=== PATIENT | female | born 1985 | race Asian ===

== ENCOUNTER 2023-07-26 04:35 | Inpatient (IN) | payer OTHER, SELFPAY ==
[2023-07-25 21:33] VITALS: BP 105/68
[2023-07-25 21:39] VITALS: BP 131/87
[2023-07-25 22:21] LABS: % Basophils 0.3 % (0-2); % Immature Granulocytes 0.4 % (0-0.5); % Lymphocytes 11.3 % (20.5-51.1); % Monocytes 9.5 % (1.7-9.3); % Neutrophils 78.5 % (42.2-75.2); Absolute Immature Granulocytes 0.1 10^3/uL (0-0.05); Absolute Lymphocytes 1.3 10^3/uL (1.2-3.4); Absolute Monocytes 1.1 10^3/uL (0.1-0.6); Hematocrit 38.8 % (37.0-47.0); Hemoglobin 13.8 g/dL (12.0-16.0); Mean Corp Hgb Conc. 35.6 g/dL (33.0-37.0); Mean Corpuscular Hgb 29.9 pg (27.0-31.0); Mean Corpuscular Volume 84.2 fL (81.0-99.0); Mean Platelet Volume 10.2 fL (7.4-10.4); Nucleated Red Blood Cells % 0 %; Platelet Count 198 10^3/uL (130-400); Red Blood Cell Count 4.61 10^6/uL (4.20-5.40); White Blood Cell Count 11.4 10^3/uL (4.8-10.8)
[2023-07-25 22:22] LABS: ALT (SGPT) 18 U/L (0-35); AST (SGOT) 25 U/L (14-36); Albumin 4.5 g/dl (3.5-5.0); Alkaline Phosphatase 50 U/L (38-126); Blood Urea Nitrogen 11 mg/dl (7-17); Carbon Dioxide 24 mmol/L (22-30); Chloride 101 mmol/L (98-107); Glucose 109 mg/dl (70-99); Potassium 4.1 mmol/L (3.5-5.1); Sodium 135 mmol/L (135-145); Total Bilirubin 0.6 mg/dl (0.2-1.3); Total Protein 7.6 g/dl (6.3-8.2); eGFR > 60.00
[2023-07-26] VITALS (15 sets, daily range): BP systolic 85–123; BP diastolic 58–80
--- NOTE | 2023-07-26 01:15 | ED.GENMED ---
History of Present Illness
General
Chief Complaint: Fever
Source: patient
Exam Limitations: none
Time Seen by Provider: 07/26/23 00:57
Travel History
Have you had any contact with someone who has COVID-19?: No
Do you have any symptoms of coronavirus? Fever > 100 degrees, chills, cough, shortness of breath, sore throat, loss of taste or smell, muscle aches, or headache?: No
History of Present Illness
History of Present Illness:
This is a 37 year old female that comes in with her daughter who interprets for her. States that she has left mid back pain for the past week and then 2 days ago she started with a fever. States that her fever at home was 101. States that she has
had chills, chest pain, SOB, cough, and a headache. Denies any abd pain, nausea, vomiting, diarrhea, dizziness, urinary burning.
Past History
Past History
ED Past Medical History: None; Negative Asthma, HTN, Hypercholesterolemia or NIDDM
ED Past Surgical History: None
Social History
Tobacco: Non-smoker
Alcohol: None
Drug: None
Personal:
Living: with family
Review of Systems
Review of Systems
All Other Systems: ROS reviewed and negative except as documented in HPI and ROS
Constitutional: Reports fever and chills
EENT: Reports no symptoms
Respiratory: Reports cough and trouble breathing
Cardiac: Reports chest pain
ABD/GI: Reports no symptoms; Denies abdominal pain, nausea, vomiting or diarrhea
: Reports no symptoms; Denies dysuria, frequency or urgency
Musculoskeletal: Reports no symptoms
Skin: Reports no symptoms
Neurological: Reports headache; Denies dizzy
Psychiatric: Reports no symptoms
Phy Exam
General Physical Exam
General Presentation: no apparent distress
General age: appears stated age
General Skin: warm and dry
General Habitus: normal
General Mental: alert
General Hydration: appears well hydrated
ENT Exam
ENT Exam: TM's normal, pharynx normal and neck supple
Eye Exam
Eye Exam: EOMI
Cardiovascular Exam
Cardiovascular Exam: regular rate/rhythm, no edema, no murmur and normal peripheral pulses
Pulmonary Exam
Pulmonary Exam: lungs clear, no respiratory distress, no rales, chest non tender, no crackles, no rhonchi, no wheezing and other (Dry cough noted)
Gastrointestinal Exam
Gastrointestinal Exam: normal bowel sounds, soft, no organomegaly, no pulsatile mass, non distended and tender (Very slight left UQ tenderness with palpation)
Musculoskeletal Exam
Musculoskeletal Exam: full ROM and no edema
Skin Exam
Skin Exam: normal color, warm/dry, no rash and no petechia
Psychiatric Exam
Psychiatric Exam: normal mood/affect
Course
Orders/Labs/Results
Orders:
Orders
07/25/23 21:42
EKG [Electrocardiogram (*1)] Urgent
Reason for Study: Chest Pain
EKG- Treatment ONCE
07/25/23 21:59
CBC/With Diff [Complete Blood Count/With Diff] Urgent
CMP [Comprehensive Metabolic Panel] Urgent
HCG, Serum Qualitative Screen Urgent
07/26/23 01:12
CR Chest - 2 Views Urgent
Comment:
Reason For Exam: SOB, chest pain, Cough
07/26/23 01:13
0.9% Sodium Chloride 1000 ml [Nss] 1,000 ml IV BOLUS
07/26/23 01:33
COVID-19 Antigen Urgent
Source: Nasal Swab
Lactic Acid Urgent
Troponin I Urgent
Urinalysis Reflex To Culture Urgent
Date Specimen was Collected: 07/26/23
Time Specimen was Collected: 01:00
Urine Microscopic Reflex Cult Urgent
Blood Culture Q30M
EMERY Source: Blood/Venous
Specimen Description:
Blood Culture Q30M
EMERY Source: Blood/Venous
Specimen Description:
Influenza A+B Rapid Molecular Urgent
EMERY Source: Nasal Swab
Specimen Description:
07/26/23 01:37
Acetaminophen [Tylenol] 1,000 mg .ROUTE .STK-MED ONE
07/26/23 01:38
Acetaminophen [Tylenol] 1,000 mg PO NOW STA
07/26/23 01:47
CT Abd/pel Without Iv Or Oral Urgent
Comment:
Reason For Exam: Left flank/back pain
07/26/23 02:29
Add On- LAB Urgent
Tests Added?: HCG Qual
07/26/23 02:30
Add On- LAB Urgent
Tests Added?: HCG
Abnormal Lab Results
07/25/23 07/26/23
21:59 01:33
WBC 11.4 H 10^3/uL
(4.8-10.8)
Abs Immat Gran (auto) 0.1 H 10^3/uL
(0-0.05)
Absolute Neuts (auto) 9.0 H 10^3/uL
(1.4-6.5)
Absolute Monos (auto) 1.1 H 10^3/uL
(0.1-0.6)
Neutrophils % 78.5 H %
(42.2-75.2)
Lymphocytes % 11.3 L %
(20.5-51.1)
Monocytes % 9.5 H %
(1.7-9.3)
Glucose 109 H mg/dl
(70-99)
Urine Ketones 3+ A
(Negative)
Ur Occult Blood Reflex 3+ A
(Negative)
Leukocyte Esterase Rfl Trace A
(Negative)
Urine RBC 26-30 A /HPF
(0-2)
Urine Bacteria (Reflex) Few A
(Negative)
07/25/23 21:59
07/25/23 21:59
Leukocytosis, Glucose nonfasting. Urine negative for infection. COVID and Influenza negative. Troponin <0.012
Vital Signs
Initial and Last Documented VS:
Initial Vital Signs
Pulse Resp BP Pulse Ox
79 32 105/68 96
07/25/23 21:33 07/25/23 21:33 07/25/23 21:33 07/25/23 21:33
Last Documented Vital Signs
Temp Pulse Resp BP Pulse Ox
100.3 F 90 21 97/62 96
07/26/23 03:00 07/26/23 03:06 07/26/23 03:06 07/26/23 03:06 07/26/23 03:06
MDM/Problems Addressed
Differential Diagnosis Includes:
COVID, PNA,
MDM/Problems Addressed:
This is a 37 year old female that comes in with multiple complaints. Daughter states that she started a weeks ago with left sided back pain and then 2 days ago she started with a fever. Patient has multiple complaints when questioned.
Will check labs. Chest x-ray, Urine.
Back into see patient. Explained that she has a right lower lobe Pneumonia. Will start patient on IV antibiotics and admit. Hospitalist notified.
Chronic conditions affecting care:
NA
Acute Exacerbation and/or Progression of Chronic Illness:
NA
*Radiology
Radiology exam reviewed: preliminary read by ED provider ( Chest- Right lower lobe Pneumonia )
*Pulse Oximetry
Patient hypoxic: no
*EKG
Interpreted by ED Provider?: Yes
Heart Rate: 124
Rate: tachycardiac
Rhythm: sinus tachycardia
[place]: normal axis
Interval: normal interval
QRS Pattern: normal QRS
Ischemia: T-wave inversion (III, aVF, V3, )
*Business Process Engineer Interpretation
Rate: Business Process Engineer- N/A
*Critical Care Note
Total Time (30-74mins, 75-104mins- exclusive of procedures): Not Applicable
ED Attending Note
-
Portions of this chart may have been created with voice recognition software.� Occasional wrong word or��sound alike� substitutions may have occurred due to the inherent limitations of voice recognition software.
Discharge Plan
Departure
Patient Disposition: Admit
Date of Disposition: 07/26/23
Time of Disposition: 03:42
Admit to: Med/Surg
Presentation/result/management discussed w/ accepting MD/DO: Hospitalist
Patient with high blood pressure during this ER visit?: No
Condition: Good
Covid-19: Negative COVID-19
Discharge Problem:
Right lower lobe pneumonia
Prescriptions:
No Action
No Current Medications
0
Referrals:
NONE,* [Family Provider] -
Interventions
Interventions:
*Risk Screen - Suicide Last Done: 07/25/23 21:39
*General Assessment Last Done: 07/25/23 21:39
*Neglect/Abuse Screening Last Done: 07/25/23 21:39
ED- Fall Risk Assessment Last Done: 07/26/23 01:41
*ED COVID-19 Vaccine History Last Done: 07/26/23 01:40
ED- Neurological Assessment Last Done: 07/26/23 03:21
ED-Skin Assessment Last Done: 07/26/23 03:21
Discharge Date and Time
Print Language: TAMAZIGHT
[2023-07-26] MEDS: TYLENOL 1000 MG PO (01:39)
[2023-07-26] MEDS: NSS 1000 IV ×3 (01:39→22:21)
[2023-07-26 01:42] LABS: Urine Albumin Trace (Neg - Trace); Urine Bilirubin Negative (Negative); Urine Character Clear (Clear); Urine Color Yellow; Urine Glucose Negative (Negative); Urine Ketone 3+ (Negative); Urine Leukocyte Trace (Negative); Urine Nitrite Negative (Negative); Urine Occult Blood 3+ (Negative); Urine Specific Gravity 1.015 (<1.030); Urine Urobilinogen Negative (Neg - 1+); Urine pH 6.5 (5.0-9.0)
[2023-07-26 01:54] LABS: Lactic Acid 0.9 mmol/L (0.7-2.0)
[2023-07-26 01:57] LABS: COVID-19 Antigen Negative (Negative)
[2023-07-26 02:06] LABS: Troponin I < 0.012 ng/ml
[2023-07-26 02:42] LABS: Urine Bacteria Few (Negative); Urine Mucus Few; Urine Red Blood Cell 26-30 /HPF (0-2)
[2023-07-26 03:08] LABS: HCG, Serum Qualitative Screen Negative
--- NOTE | 2023-07-26 03:42 | HPS.HSE ---
Family Physician
-
Family Physician: * NONE
Chief Complaint
-
cough, SOB, fever
History of Present Illness
HPI: 37 year old Chilean speaking female without significant PMH, p/w fever (at 101), SOB and cough ongoing for 2 days. She also c/o L sided chest pain worse with deep inspiration.
She denies to abd pain, nausea/vomiting, change BM/urination etc.
Medical History
Past Medical History
Past Medical History: Reports None
Past Surgical History: Reports None
Social History
Tobacco: Non-smoker
Alcohol: None
Personal:
Living: With Family
Family History
Family History: Not pertinent
Allergies / Home Medications
Allergies reflects when Allergies were last updated in [employer].
Home Medications with original date entered in [employer]
Allergy/Medication List:
Allergies
Allergy/AdvReac Type Severity Reaction Status Date / Time
No Known Allergies Allergy Unverified 07/26/23 01:02
Home Medications
No Meds [No Current Medications] 07/26/23
Review of Systems
-
Respiratory: Reports See HPI and Cough
Cardiac: Reports Chest Pain (L side )
Physical Exam
Vital Signs
Vital Signs
Temp Pulse Resp BP Pulse Ox
37.9 C 90 21 97/62 96
07/26/23 03:00 07/26/23 03:06 07/26/23 03:06 07/26/23 03:06 07/26/23 03:06
Physical Exam
General: Well Developed, Well Nourished, No Apparent Distress and Conversant
HEENT: NormoCephalic, Moist mucous membranes and Atraumatic
Respiratory: Clear and Non Labored Respirations; No Accessory Resp Muscle Use
Cardiac: S1/S2 and Regular Rhythm; No Murmur or Rub
GI: Soft, Non Tender, Non Distended and Normal Bowel Sounds; No Organomegaly
Rectal: Deferred by Provider
Musculoskeletal: No Clubbing, No Cyanosis and No Edema
Skin: No Rash
Neuro: Nonfocal/grossly intact
Psych: Calm and Intact Judgment/Insight
Laboratory Results
-
07/25/23 21:59
07/25/23:59
Laboratory Results
Lactic Acid 0.9 mmol/L (0.7-2.0) 07/26/23 01:33
Total Bilirubin 0.6 mg/dl (0.2-1.3) 07/25/23:
AST 25 U/L (14-36) 07/25/23:
ALT 18 U/L (0-35) 07/25/23:59
Alkaline Phosphatase 50 U/L (38-126) 07/25/23:
Troponin I < 0.012 ng/ml 07/26/23 01:33
Data Reviewed
-
Diagnostic Radiology: Image Personally Visualized and interpreted
Lab Data: Labs Reviewed by me
Impression/Plan
-
HPI: 37 year old Chilean speaking female without significant PMH, p/w fever (at 101), SOB and cough ongoing for 2 days. She also c/o L sided chest pain worse with deep inspiration.
She denies to abd pain, nausea/vomiting, change BM/urination etc.
A/P:
# sepsis POA 2/2 RLL CAP
s/p 1 L NSS in ED, give additional 500 cc followed by maintenance IVF
COVID/Flu neg
follow blood Cx
Check MRSA screen
cont ceftriaxone/azithromycin
# L sided chest pain even though CAP appear to be on the right
Check trop
EKG with sinus tachycardia and TWI in inferior leads
Monitor CP
DVT ppx: Lovenox SQ
FC
[2023-07-26] MEDS: ROCEPHIN 1000 MG IV (04:06)
[2023-07-26] MEDS: NSS 250 IV (04:07)
[2023-07-26] MEDS: ZITHROMAX INFUSION 250 IV (04:29)
[2023-07-26 06:28] LABS: % Basophils 0.2 % (0-2); % Eosinophils 0.2 % (0-6); % Immature Granulocytes 0.3 % (0-0.5); % Lymphocytes 14.4 % (20.5-51.1); % Monocytes 11.1 % (1.7-9.3); % Neutrophils 73.8 % (42.2-75.2); Absolute Lymphocytes 1.3 10^3/uL (1.2-3.4); Absolute Neutrophils 6.6 10^3/uL (1.4-6.5); Hematocrit 33.9 % (37.0-47.0); Hemoglobin 11.5 g/dL (12.0-16.0); Mean Corp Hgb Conc. 33.9 g/dL (33.0-37.0); Mean Corpuscular Hgb 29.9 pg (27.0-31.0); Mean Corpuscular Volume 88.1 fL (81.0-99.0); Mean Platelet Volume 10.2 fL (7.4-10.4); Nucleated Red Blood Cells % 0 %; Platelet Count 150 10^3/uL (130-400); Red Blood Cell Count 3.85 10^6/uL (4.20-5.40); White Blood Cell Count 8.9 10^3/uL (4.8-10.8)
[2023-07-26 06:39] LABS: Blood Urea Nitrogen 8 mg/dl (7-17); Calcium 7.7 mg/dl (8.4-10.2); Carbon Dioxide 22 mmol/L (22-30); Chloride 109 mmol/L (98-107); Glucose 98 mg/dl (70-99); Potassium 3.5 mmol/L (3.5-5.1); Sodium 139 mmol/L (135-145); eGFR > 60.00
[2023-07-26 06:50] LABS: Troponin I < 0.012 ng/ml
[2023-07-26] MEDS: MUCINEX 600 MG PO (10:11)
[2023-07-26] MEDS: ROBITUSSIN AC 10 ML PO ×2 (13:10→18:18)
--- NOTE | 2023-07-26 16:03 | W.PN.HOSP.TC ---
Today's Communication/Plan
-
See plan
Assessment / Plan
Assessment / Plan
Impression:
HPI: 37 year old Beninese speaking female without significant PMH, p/w fever (at 101), SOB and cough ongoing for 2 days. She also c/o L sided chest pain worse with deep inspiration.
She denies to abd pain, nausea/vomiting, change BM/urination etc.
Sepsis present on admission secondary to right lower lobe pneumonia
� Fever, persistent cough, hypotension, elevated white count
Right lower lobe pneumonia, community-acquired.
Persistent left-sided back and chest pain
Plan:
Sepsis secondary to right lower lobe pneumonia
Influenza/COVID-negative
Blood cultures pending.
Continue antibiotics: Ceftriaxone/Zithromax covering community-acquired pathogens
Add mucolytic's
Respiratory status stable with no requirements for supplemental oxygen
Hypotension improved with IV fluid bolus
Persistent left-sided chest and back pain.
No prior history of CAD or thromboembolic disease.
Stable respiratory status.
ECG with sinus tachycardia and incomplete left bundle branch block.
Negative cardiac markers.
Check D-dimer.
Monitor closely.
If persistent consider further evaluation with CT PE/echocardiogram.
DVT prophylaxis Lovenox
Full code.
Anticipated Discharge: 24 - 48 hours
Subjective/Interval History
-
Date of Service: July 26, 2023
Objective Data
-
Labs:
Laboratory Results
07/26/23
06:17
WBC 8.9
Hgb 11.5 L
Hct 33.9 L
Plt Count 150 D
Sodium 139
Potassium 3.5
Chloride 109 H
Carbon Dioxide 22
BUN 8
Creatinine 0.6
Glucose 98
Calcium 7.7 L
Vital Signs:
Vital Signs
Temp Pulse Resp BP Pulse Ox
98.3 F 108 29 110/68 98
07/26/23 07:55 07/26/23 15:00 07/26/23 15:00 07/26/23 15:00 07/26/23 15:00
Physical Exam
-
General: Well Developed and No Apparent Distress
HEENT: Normocephalic, Atraumatic and Moist Mucous Membranes
Respiratory: Other (Bronchial sounds at the right base)
Cardiac: Regular Rhythm and S1/S2; Negative Murmur, Rub or Gallop
GI: Soft, Nontender, Nondistended and Normal Bowel Sounds; Negative Organomegaly
Rectal: Deferred by Provider
Musculoskeletal: No Clubbing, No Cyanosis and No Edema
Skin: Negative Rash
Neuro: Awake, Alert, Oriented, AO x 3 and Nonfocal/Grossly Intact
[2023-07-26] MEDS: TYLENOL 650 MG PO (18:18)
[2023-07-26] MEDS: MUCINEX PO (20:19)
[2023-07-27] MEDS: TYLENOL 650 MG PO ×2 (02:17→11:05)
[2023-07-27] MEDS: ROBITUSSIN AC 10 ML PO (02:24)
[2023-07-27 02:27] VITALS: BP 110/74
[2023-07-27] MEDS: ROCEPHIN 1000 MG IV (04:35)
[2023-07-27] MEDS: ZITHROMAX INFUSION 250 IV (04:35)
[2023-07-27] MEDS: STERILE WATER FOR INJECTION 10 ML IV (04:35)
[2023-07-27 05:48] LABS: % Basophils 0.2 % (0-2); % Immature Granulocytes 0.2 % (0-0.5); % Lymphocytes 13.4 % (20.5-51.1); % Monocytes 12.5 % (1.7-9.3); % Neutrophils 72.7 % (42.2-75.2); Absolute Eosinophils 0.1 10^3/uL (0-0.7); Absolute Lymphocytes 1.4 10^3/uL (1.2-3.4); Absolute Monocytes 1.3 10^3/uL (0.1-0.6); Absolute Neutrophils 7.5 10^3/uL (1.4-6.5); Hematocrit 33.9 % (37.0-47.0); Hemoglobin 11.6 g/dL (12.0-16.0); Mean Corp Hgb Conc. 34.2 g/dL (33.0-37.0); Mean Corpuscular Hgb 29.5 pg (27.0-31.0); Mean Corpuscular Volume 86.3 fL (81.0-99.0); Mean Platelet Volume 10.3 fL (7.4-10.4); Nucleated Red Blood Cells % 0 %; Platelet Count 169 10^3/uL (130-400); Red Blood Cell Count 3.93 10^6/uL (4.20-5.40); Red Cell Dist. Width 12.1 % (11.5-14.5); White Blood Cell Count 10.4 10^3/uL (4.8-10.8)
[2023-07-27 06:07] LABS: Blood Urea Nitrogen 6 mg/dl (7-17); Calcium 7.8 mg/dl (8.4-10.2); Carbon Dioxide 22 mmol/L (22-30); Chloride 110 mmol/L (98-107); Glucose 106 mg/dl (70-99); Potassium 3.9 mmol/L (3.5-5.1); Sodium 139 mmol/L (135-145); eGFR > 60.00
[2023-07-27 07:30] VITALS: BP 111/75
[2023-07-27] MEDS: MUCINEX 600 MG PO ×2 (08:47→21:19)
[2023-07-27] MEDS: NSS 1000 IV (11:05)
[2023-07-27 11:30] VITALS: BP 105/71
[2023-07-27] MEDS: NSS IV (13:20)
--- NOTE | 2023-07-27 14:48 | CM ---
Alert awake oriented patient who lives with her and daughter Karen who lives in an apartment with 2 steps to enter.She is independent in in all activities of daily living.Her daughter speaks Samoan.PATRIC [place] has spoke to dgt about no
insurance.
No VN hx / No SNF history
Pharmacy [facility] [address]
PCP none Gave information about [facility]
PLAN Home no anticipated needs
[2023-07-27 16:00] VITALS: BP 108/74
--- NOTE | 2023-07-27 18:17 | W.PN.HOSP.TC ---
Today's Communication/Plan
-
Continue antibiotics pending cultures.
Assessment / Plan
Assessment / Plan
Impression:
HPI: 37 year old Emirati speaking female without significant PMH, p/w fever (at 101), SOB and cough ongoing for 2 days. She also c/o L sided chest pain worse with deep inspiration.
She denies to abd pain, nausea/vomiting, change BM/urination etc.
Sepsis present on admission secondary to right lower lobe pneumonia
� Fever, persistent cough, hypotension, elevated white count
Right lower lobe pneumonia, community-acquired.
Persistent left-sided back and chest pain
Plan:
Sepsis secondary to right lower lobe pneumonia
Influenza/COVID-negative
Blood cultures negative to date
Continue antibiotics: Ceftriaxone/Zithromax covering community-acquired pathogens
Add mucolytic's
Respiratory status stable with no requirements for supplemental oxygen
Hypotension improved with IV fluid bolus
Persistent left-sided chest and back pain.
No prior history of CAD or thromboembolic disease.
Stable respiratory status.
ECG with sinus tachycardia and incomplete left bundle branch block.
Negative cardiac markers.
D-dimer close to normal at 0.60
Monitor closely.
Chest pain resolved
DVT prophylaxis Lovenox
Full code.
Anticipated Discharge: Within 24 hours
Subjective/Interval History
-
Date of Service: July 27, 2023
Objective Data
-
Vital Signs:
Vital Signs
Temp Pulse Resp BP Pulse Ox
98.9 F 96 16 108/74 98
07/27/23 16:00 07/27/23 16:00 07/27/23 16:00 07/27/23 16:00 07/27/23 16:00
I&O
07/26/23 07/27/23 07/28/23
06:59 06:59 06:59
Intake Total 1290 / 1290
Balance 1290 / 1290
Physical Exam
-
General: Well Developed and No Apparent Distress
HEENT: Normocephalic, Atraumatic and Moist Mucous Membranes
Respiratory: Clear to Auscultation
Cardiac: Regular Rhythm and S1/S2; Negative Murmur, Rub or Gallop
GI: Soft, Nontender, Nondistended and Normal Bowel Sounds; Negative Organomegaly
Rectal: Deferred by Provider
Musculoskeletal: No Clubbing, No Cyanosis and No Edema
Skin: Negative Rash
Neuro: Nonfocal/Grossly Intact
[2023-07-27 19:15] VITALS: BP 112/73
[2023-07-27 23:45] VITALS: BP 113/74
[2023-07-28 03:00] VITALS: BP 111/77
[2023-07-28] MEDS: ROCEPHIN 1000 MG IV (04:12)
[2023-07-28] MEDS: STERILE WATER FOR INJECTION 10 ML IV (04:13)
[2023-07-28] MEDS: ZITHROMAX 500 MG PO (05:51)
[2023-07-28 07:30] VITALS: BP 108/72
[2023-07-28] MEDS: MUCINEX 600 MG PO (08:54)
--- NOTE | 2023-07-28 11:54 | W.DS.TRANS ---
DC Summary - Type Cutter
-
Discharge Instructions:
Discharge Diagnosis/Procedures Pneumonia
Diet Regular
Instructions:
Stand-Alone Forms:
Changes to Home Medications: Yes
Discharge Medications:
DC Medications w/original date entered in [employer]
acetaminophen 325 mg tablet (Tylenol) 325 mg PO DAILYPRN PRN fever 07/26/23
azithromycin 500 mg tablet (Zithromax) 500 mg PO DAILY 5 days #5 tabs 07/28/23
cefdinir 300 mg capsule 300 mg PO BID #10 caps 07/28/23
guaifenesin 600 mg tablet, extended release 12 hr 600 mg PO Q12 #30 tabs 07/28/23
Home Medication Changes
Completing antibiotics course as above.
Pending Results: No
[2023-07-28 12:00] VITALS: BP 112/77
--- NOTE | 2023-07-28 14:07 | CM ---
entered order for discharge.
Daughter Karen drove pt home.
Karen speaks Chinese [phone].
[facility] saw pt awaiting paper work from family.
PLAN Home no needs
== END 2023-07-28 13:06 | disposition home or self-care (01) | DRG 871 ==
LOC: 3 WEST ACU 04:35
PROVIDERS: Clinical Nurse Specialist Family Health; Emergency Medicine; ADMITTING PHYSICIAN Internal Medicine; ATTENDING PHYSICIAN Internal Medicine; EMERGENCY PHYSICIAN Student in an Organized Health Care Education/Training Program
DX: A41.89 Other specified sepsis (principal); J18.9 Pneumonia, unspecified organism; Z11.52 Encounter for screening for COVID-19
CPT/HCPCS: 71046; 80048; 80053; 81003; 81015; 83605; 84484; 84703; 85025; 85379; 87040; 87070; 87502; 87811; 93005